=== PATIENT | female | born 1980 | race Caucasian/White ===

== ENCOUNTER → 2017-03-31 | Outpatient (CLI) | payer BC ==
[2014-12-14 08:38] VITALS: BP 130/81
[~2017-03-31] MED LIST: ORTHO TRI-CYCLE1 TA1 PO
== END ==
LOC: RAD 11:05
DX: M77.32 Calcaneal spur, left foot (principal)

== ENCOUNTER → 2018-06-29 | Outpatient (CLI) | payer BC ==
[2014-12-14 08:38] VITALS: BP 130/81
== END ==
LOC: RAD 15:42 → LAB 15:42
DX: R06.02 Shortness of breath (principal); R06.2 Wheezing; R05 Cough

== ENCOUNTER → 2018-06-30 | Outpatient (CLI) | payer BC ==
[2014-12-14 08:38] VITALS: BP 130/81
== END ==
LOC: LAB 08:12
DX: R06.02 Shortness of breath (principal); R06.2 Wheezing

== ENCOUNTER → 2018-11-01 | Outpatient (CLI) | payer BC ==
[2014-12-14 08:38] VITALS: BP 130/81
== END ==
LOC: RAD 12:09
DX: J32.9 Chronic sinusitis, unspecified (principal)

== ENCOUNTER 2019-02-20 18:14 | Emergency (ER) | payer BC ==
[~2019-02-20] VITALS: Ht 160 cm; Wt 130.0 kg
[2019-02-20] MEDS ORDERED: BREO ELLIPTA1 POW IH (18:44)
[2019-02-20 18:57] LABS: HEMATOCRIT 43.8 % (37.0-47.0); MEAN CELL VOLUME 84 fl (78-100); MEAN CORPUSCULAR HEMOGLOBIN 27 pg (27-31); MEAN CORPUSCULAR HGB CONC 32 g/dL (33-37); MEAN PLATELET VOLUME 9.7 fl (7.4-10.4); PLATELET COUNT 331 K/mm3 (130-400); RED BLOOD COUNT 5.21 M/mm3 (4.10-5.30); RED CELL DISTRIBUTION WIDTH 14.3 % (11.5-14.5); WHITE BLOOD COUNT 12.3 K/mm3 (4.8-10.8)
[2019-02-20 19:05] LABS: ALBUMIN 3.7 g/dL (3.5-5.0); POTASSIUM 3.8 mmol/L (3.5-5.1)
[2019-02-20 19:07] LABS: CALCIUM 8.9 mg/dL (8.3-10.5)
[2019-02-20 19:08] LABS: TOTAL PROTEIN 7.4 g/dL (6.4-8.3)
[2019-02-20 19:10] LABS: TOTAL BILIRUBIN 0.4 mg/dL (0.2-1.2)
[2019-02-20 19:18] LABS: D-DIMER 2.5 mg/L FEU (0.15-0.50)
[2019-02-20 19:27] LABS: LYMPHOCYTE 20 % (20-51); MONOCYTE 5 % (3-10); NEUTROPHILS 66 % (42-75)
[2019-02-20] MEDS ORDERED: ELIQUIS5 MG PO (20:39)
[2019-02-20 21:02] VITALS: BP 148/78
== END 2019-02-20 21:02 | disposition home or self-care (01) ==
LOC: ED 18:14
PROVIDERS: Nurse Practitioner Family
DX: M79.662 Pain in left lower leg (principal); K76.0 Fatty (change of) liver, not elsewhere classified; E66.01 Morbid (severe) obesity due to excess calories; R59.0 Localized enlarged lymph nodes; I10 Essential (primary) hypertension; Z90.49 Acquired absence of other specified parts of digestive tract; Z79.51 Long term (current) use of inhaled steroids
CPT/HCPCS: Q9967

== ENCOUNTER → 2019-02-22 | Outpatient (CLI) | payer BC ==
[2019-02-20 21:02] VITALS: BP 148/78
[~2019-02-22] MED LIST changes: +BREO ELLIPTA1 POW IH; +ELIQUIS5 MG PO
== END ==
LOC: RAD 10:00
DX: I82.432 Acute embolism and thrombosis of left popliteal vein (principal); I82.412 Acute embolism and thrombosis of left femoral vein; I82.492 Acute embolism and thrombosis of other specified deep vein of left lower extremity

== ENCOUNTER → 2019-03-14 | Outpatient (CLI) | payer BC ==
[2019-02-20 21:02] VITALS: BP 148/78
== END ==
LOC: RAD 09:55
DX: J34.89 Other specified disorders of nose and nasal sinuses (principal); E05.00 Thyrotoxicosis with diffuse goiter without thyrotoxic crisis or storm; H05.241 Constant exophthalmos, right eye

== ENCOUNTER → 2019-03-15 | Outpatient (CLI) | payer BC ==
[2019-02-20 21:02] VITALS: BP 148/78
== END ==
LOC: RAD 11:32
DX: E05.00 Thyrotoxicosis with diffuse goiter without thyrotoxic crisis or storm (principal); J32.9 Chronic sinusitis, unspecified; H05.821 Myopathy of extraocular muscles, right orbit; H05.241 Constant exophthalmos, right eye
CPT/HCPCS: A9585

== ENCOUNTER → 2019-03-29 | Outpatient (CLI) | payer BC | LOC: RAD 14:55 | DX: E05.00 Thyrotoxicosis with diffuse goiter without thyrotoxic crisis or storm (principal) ==

== ENCOUNTER → 2019-04-27 | Outpatient (CLI) | payer BC | LOC: RAD 14:50 | DX: J32.4 Chronic pansinusitis (principal); J32.0 Chronic maxillary sinusitis; J32.1 Chronic frontal sinusitis; J32.3 Chronic sphenoidal sinusitis; J32.2 Chronic ethmoidal sinusitis; J98.11 Atelectasis; J33.9 Nasal polyp, unspecified ==

== ENCOUNTER → 2019-04-30 | Outpatient (CLI) | payer BC | LOC: LAB 07:45 | DX: R06.2 Wheezing (principal) ==

== ENCOUNTER → 2019-07-10 | Outpatient (CLI) | payer BC ==
[2019-05-30 18:53] VITALS: BP 149/88
[~2019-07-10] MED LIST changes: +BUDESONIDE1 MG/2 ML IH; +DILT-XR240 MG PO; +IPRATROPIUM BROM3 M1 IH; +LEXAPRO5 MG PO; +RT ALBUTEROL CC18 GM IH
== END ==
LOC: MAMMO 15:06
DX: M85.851 Other specified disorders of bone density and structure, right thigh (principal); M85.852 Other specified disorders of bone density and structure, left thigh

== ENCOUNTER → 2021-10-20 | Outpatient (CLI) | payer BC | LOC: RAD 14:23 → MAMMO 14:30 | DX: M85.80 Other specified disorders of bone density and structure, unspecified site (principal); E55.9 Vitamin D deficiency, unspecified ==

== ENCOUNTER → 2022-01-13 | Outpatient (CLI) | payer BC | LOC: RAD 15:23 | DX: J32.9 Chronic sinusitis, unspecified (principal); E04.1 Nontoxic single thyroid nodule; Z86.39 Personal history of other endocrine, nutritional and metabolic disease ==

== ENCOUNTER → 2024-02-20 | Outpatient (CLI) | payer BC | LOC: MAMMO 08:51 | DX: Z12.31 Encounter for screening mammogram for malignant neoplasm of breast (principal) ==

== ENCOUNTER → 2024-09-04 | Outpatient (CLI) | payer BC | LOC: RAD 10:56 → MAMMO 11:00 | DX: Z13.820 Encounter for screening for osteoporosis (principal); M85.851 Other specified disorders of bone density and structure, right thigh; M85.852 Other specified disorders of bone density and structure, left thigh ==